=== PATIENT | male | born 1980 | race Caucasian/White ===

== ENCOUNTER 2020-01-05 16:30 | Emergency (ER) | payer BC, SELFPAY ==
[2020-01-05 16:38] VITALS: BP 159/89; PULSE 67; RESP 18; TEMP 36.9; O2SAT 97
--- NOTE | 2020-01-05 17:00 | ED.GENADULT ---
HPI - General Adult General Chief complaint: Upper Respiratory Infection Stated complaint: Fever Time Seen by Provider: 01/05/20 17:02 Source: patient and RN notes reviewed Mode of arrival: ambulatory Limitations: no limitations History of Present Illness HPI narrative: This is a 39 years old male presented office for evaluation of fever at nighttime for 10-day. Denies any other associated symptoms such as stuffy nose, ear pain, cough, abdominal pain. Report chronic nauseous due to also. He reported diarrhea today. Denies bloody stool. Denies sick contact. Denies new medication or diet. Related Data Home Medications Medication Instructions Recorded Confirmed Nadolol PO DAILY 01/05/20 pantoprazole [Protonix] 40 mg PO QAM 01/05/20 01/05/20 sertraline [Zoloft] 100 mg PO DAILY 01/05/20 01/05/20 warfarin [Coumadin] 2 mg PO DAILY 01/05/20 01/05/20 warfarin [Coumadin] 10 mg PO DAILY 01/05/20 01/05/20 Allergies Allergy/AdvReac Type Severity Reaction Status Date / Time No Known Allergies Allergy Verified 01/05/20 16:56 Review of Systems Review of Systems: Narrative: CONSTITUTIONAL: Reports fever ENT: Denies rhinorrhea, congestion, sore throat, otalgia. CARDIOVASCULAR: Denies chest pain RESPIRATORY: Denies dyspnea, wheezing, cough GASTROINTESTINAL: Denies abdominal pain, vomiting, diarrhea. +Nausea GENITOURINARY: Denies urinary symptoms or discharge SKIN: Denies rash MUSCULOSKELETAL: Denies acute back pain NEUROLOGIC: Denies lightheaded PMFSH Past Medical History Medical History History of prolonged Q-T interval on ECG Pulmonary embolism Ulcer Comments At time of signature, I agree with nursing past medical, surgical, social and family history. There is no relevant family history pertinent to the presenting complaint. Exam Narrative: Exam Narrative: GENERAL: This is a well-nourished, well-developed patient, in no apparent distress. Obese EYES: Sclera clear/white. Vision is grossly intact. EARS: External ears normal, auditory canals clear and without drainage, TMs normal without perforation. Hearing grossly intact. NOSE: External nose normal with no obvious nasal discharge, nares without redness, no rhinorrhea. THROAT: Mucous membranes moist, posterior pharynx clear. NECK: Neck supple, non-tender without lymphadenopathy, masses or thyromegaly. CARDIOVASCULAR: Regular rate and rhythm without murmurs, gallops, or rubs. RESPIRATORY: Clear to auscultation. Breath sounds equal bilaterally. No wheezes, rales, or rhonchi. GASTROINTESTINAL: Abdomen soft, non-tender, nondistended. Bowel sounds are active. No guarding. SKIN: warm, intact with no suspicious lesions or rash, good texture and turgor. NEURO: awake, alert, and oriented to person, place and time. There were no obvious focal neurologic abnormalities. Steady gait Norah Coma Scale Eye Opening: Spontaneous 4 Norah Coma Scale Motor: Obeys Commands 6 Fairchild Coma Scale Verbal: Oriented 5 Course Vital Signs Vital signs: Vital Signs Temperature 98.4 F 01/05/20 16:38 Pulse Rate 67 01/05/20 16:38 Respiratory Rate 18 01/05/20 16:38 Blood Pressure 159/89 H 01/05/20 16:38 Pulse Oximetry 97 01/05/20 16:38 Temperature 98.4 F 01/05/20 16:38 Pulse Rate 67 01/05/20 16:38 Respiratory Rate 18 01/05/20 16:38 Blood Pressure 159/89 H 01/05/20 16:38 Pulse Oximetry 97 01/05/20 16:38 Medical Decision Making MDM Narrative Medical decision making narrative: Discharge instructions reviewed with patient, as well as provided in writing per nursing staff. The instructions also include specific and strict return/GO TO THE ER as well as f/u information. All questions have been answered, and the patient deny any further questions with discharge and discharge plan. Differential Diagnosis Differential Diagnosis: influenza, viral syndrome, gastroenteritis, colitis, diverticulitis, div
== END 2020-01-05 17:15 | disposition home or self-care (01) ==
PROVIDERS: Emergency Provider Nurse Practitioner
DX: R19.7 Diarrhea, unspecified (principal); R03.0 Elevated blood-pressure reading, without diagnosis of hypertension; Z86.711 Personal history of pulmonary embolism
CPT/HCPCS: 87804; 99202; G0463

== ENCOUNTER 2020-10-10 15:06 | Emergency (ER) | payer BC, SELFPAY ==
[2020-10-10 15:25] VITALS: BP 148/86; PULSE 79; RESP 24; TEMP 36.9; O2SAT 99
--- NOTE | 2020-10-10 16:00 | ED.BACK ---
HPI - Back Pain/Injury General Chief Complaint: Back Pain/Injury Stated Complaint: severe back pains Source: patient Mode of arrival: ambulatory Limitations: no limitations History of Present Illness HPI Narrative: 40 y/o male. PMH includes: See Chart. Presents to ED today with acute complaints of low back pain, intermittently radiating down RT buttock and posterior thigh for past 24 hours. He reports pain to have began after lifting a few things . He denies acute injury, falls, or trauma. Pain is sharp in description, and worse with prolonged sitting or standing. He denies loss of lower extremity or BB control. No additional acute complaints relayed. Related Data Home Medications Medication Instructions Recorded Confirmed allopurinol 300 mg PO BID 10/10/20 10/10/20 atorvastatin 10 mg PO DAILY 10/10/20 10/10/20 cyclobenzaprine 10 mg PO TID PRN 10/10/20 10/10/20 lisinopril 10 mg PO DAILY 10/10/20 10/10/20 pantoprazole 40 mg PO QAM 10/10/20 10/10/20 sertraline 100 mg PO DAILY 10/10/20 10/10/20 warfarin 5 mg PO DAILY 10/10/20 10/10/20 Allergies Allergy/AdvReac Type Severity Reaction Status Date / Time No Known Allergies Allergy Verified 10/10/20 16:00 Review of Systems Review of Systems: Narrative: CONSTITUTIONAL: Denies fever, chills, sweats. EYES: Denies visual changes, redness, discharge. ENT: Denies rhinorrhea, congestion, sore throat, otalgia. CARDIOVASCULAR: Denies chest pain, palpitations, edema. RESPIRATORY: Denies dyspnea, wheezing, cough GASTROINTESTINAL: Denies abdominal pain, nausea, vomiting, diarrhea. GENITOURINARY: Denies dysuria, hematuria, abnormal discharge SKIN: Denies rash or itching. MUSCULOSKELETAL: Positive back pain. NEUROLOGIC: Denies numbness, or focal weakness. PSYCHIATRIC: Denies anxiety or depression. FORMERLY [facility], 1928–1983 Past Medical History Medical History (Updated 10/10/20 @ 16:12 by FABIANO Velazquez) History of prolonged Q-T interval on ECG Pulmonary embolism Ulcer Exam Narrative: Exam Narrative: GENERAL: Obese patient, in no apparent distress. HEAD: normocephalic, atraumatic. EYES: PERRL. Sclera clear/white. Vision is grossly intact. EARS: External ears normal, auditory canals clear and without drainage, TMs normal without perforation. Hearing grossly intact. NOSE: External nose normal with no obvious nasal discharge, nares without redness, no rhinorrhea. THROAT: Mucous membranes moist, posterior pharynx clear. NECK: Neck supple, non-tender without lymphadenopathy, masses or thyromegaly. CARDIOVASCULAR: Regular rate and rhythm without murmurs, gallops, or rubs. Pulses intact. RESPIRATORY: Clear to auscultation. Breath sounds equal bilaterally. No wheezes, rales, or rhonchi. GASTROINTESTINAL: Abdomen soft, non-tender, nondistended. Bowel sounds are active. No hepato-splenomegaly, or palpable masses. No guarding. SKIN: warm, intact with no suspicious lesions or rash, good texture and turgor. EXTREMITIES/Musculoskeletal: Normal range of motion. No edema. Positive muscle spasm lumbar. There is no midline spinal tenderness or deformity appreciated. SLR test positive RT at 45 degree. BACK: Nontender without deformity or crepitance. No flank tenderness. NEURO: Alert and oriented x4, GCS 15. Cranial nerves II through XII grossly intact. No focal neurological deficits. Steady gait. No saddle paraesthesia. Course Course Emergency Course: OP POC, AVS, & Medication instructions reviewed. Client is advised to have PCP F/U next 1 week. Consider additional OP imaging with persistence. Proceed to ER with sudden severe pain, weakness, loss of extremity or bowel/bladder control, or worsening. He voices understanding and agrees. Vital Signs Vital signs: Vital Signs Temperature 36.9 C 10/10/20 15:25 Pulse Rate 79 10/10/20 15:25 Respiratory Rate 24 H 10/10/20 15:25 Blood Pressure 148/86 H 10/10/20 15:25 Pulse Oximetry 99 10/10/20 15:25 Temperature 36.9 C 10/10/20 15:25 P
== END 2020-10-10 16:18 | disposition home or self-care (01) ==
PROVIDERS: Emergency Provider Nurse Practitioner Adult Health
DX: S39.012A Strain of muscle, fascia and tendon of lower back, initial encounter (principal); X50.0XXA Overexertion from strenuous movement or load, initial encounter; M54.41 Lumbago with sciatica, right side; Z86.711 Personal history of pulmonary embolism
CPT/HCPCS: 99213; G0463

== ENCOUNTER 2020-12-17 01:25 | Outpatient (CLI) | payer BC, SELFPAY ==
[2020-12-17 18:46] LABS: SARS-CoV-2 RNA PCR Negative
== END 2020-12-17 01:26 | disposition home or self-care (01) ==
LOC: ANHCOVIDDT 01:25
PROVIDERS: Visit Provider Internal Medicine Gastroenterology
DX: Z01.812 Encounter for preprocedural laboratory examination (principal); Z20.822 Contact with and (suspected) exposure to COVID-19
CPT/HCPCS: C9803; U0003; U0005

== ENCOUNTER 2020-12-20 01:59 | Day surgery (SDC) | payer BC, SELFPAY ==
[2020-12-13 08:33] VITALS: BMI 52.3
[2020-12-20 10:26] VITALS: BP 147/95; PULSE 96; RESP 78; TEMP 36.6; O2SAT 96
[2020-12-20] MEDS: LACTATED RINGERS 1,000 ML 150 ML IV CONT (10:35)
--- NOTE | 2020-12-20 10:47 | P.PNAN_ITS ---
Anes - Initial Pre Proc Eval Procedure: Operation Date: 12/20/20 11:45 Proposed Procedures p Colonoscopy - Bob Steele MD s [facility] Hemorrhoid Treatment - Bob Steele MD Date/Time: 12/20/20 10:47 Surgeon: Bob Steele MD Pre Op Diagnosis: Hemorrhoids, Rectal Bleeding Patient Data Age: 40 Gender: M Height: 6 ft Weight: 168 kg Last Vital Signs Temp 97.9 F 12/20/20 10:26 Pulse 96 12/20/20 10:26 Resp 78 H 12/20/20 10:26 BP 147/95 H 12/20/20 10:26 Pulse Ox 96 12/20/20 10:26 Allergies Allergy/AdvReac Type Severity Reaction Status Date / Time No Known Allergies Allergy Verified 12/20/20 10:24 Home Medications Medication Instructions Recorded Confirmed Type atorvastatin 10 mg PO DAILY 10/10/20 12/13/20 History hydrocodone-acetaminophen 1 tablet PO Q12H PRN #8 tablet 10/10/20 12/13/20 Rx lisinopril 10 mg PO DAILY 10/10/20 12/13/20 History pantoprazole 40 mg PO QAM 10/10/20 12/13/20 History sertraline 100 mg PO DAILY 10/10/20 12/13/20 History warfarin 12 mg PO DAILY 10/10/20 12/13/20 History Patient hx anesthesia problems: none Family hx anesthesia problems: none PMFSH Past Medical History Medical History (Updated 11/30/20 @ 13:33 by Bob Steele MD) Erosive gastritis History of prolonged Q-T interval on ECG Obesity, morbid, BMI 40.0-49.9 Pulmonary embolism Rectal bleeding Ulcer Social History Social History (Updated 11/30/20 @ 13:14 by Ashely Pulido CMA) Smoking packs per day: 1.5 Smoking cigarettes per day: 30.0 Years smoked: 20 Smoking pack-years: 30.00 Smoking status: Former smoker Tobacco type: cigarettes Alcohol intake: never Substance use: never Substance use type: does not use Living arrangements: with family Gender identity (if verbalized by the patient): Male Spiritual care concerns: No Anes - Eval Final PreProcedure Day of Procedure 12/20/20 10:47 Patient weight: super morbidly obese Heart: regular rate and rhythm Lungs: clear to auscultation Airway: Mallampati scale class III Neurological: alert and oriented Last oral intake: >/= 8 hours ASA classification: IV Emergent: no Anesthetic plan: proceed Anesthesia type and monitoring: general GIVS and standard monitoring Informed Consent: The patient's anesthetic plan and its attendant risks and benefits were discussed with the patient/family/POA. Questions were solicited and answers provided to the satisfaction of the patient/family/POA.
--- NOTE | 2020-12-20 11:00 | PM.HPGS ---
History of Present Illness History of Present Illness Consent: Risks, benefits, and alternatives have been discussed and questions answered. Patient agrees to proceed with procedure. Chief complaint: Hemorrhoids, Rectal Bleeding Narrative: Vikas Willingham is a 40 year old male with hematochezia and symptomatic hemorrhoids Review of Systems Constitutional: Constitutional: Denies headache(s) and Denies weakness Eyes: Eyes: Denies blurry vision ENT: Reports Normal hearing present, Denies headache(s) and Denies neck pain Cardiovascular: Cardiovascular: Denies chest pain and Denies dyspnea Respiratory: Respiratory: Denies dyspnea Gastrointestinal: Gastrointestinal: Reports no additional gastrointestinal complaints Genitourinary: Genitourinary: Denies dysuria Musculoskeletal: Musculoskeletal: Denies neck pain Integumentary/Breasts: Skin/Breast: Denies dry skin Neurologic: Reports Normal hearing present, Denies headache(s) and Denies weakness Psychiatric: Psychiatric: Denies anxiety Endocrine: Endocrine: Denies change in body appearance Hematologic/Lymphatic: Hematologic/Lymphatic: Denies easy bleeding Allergic/Immunologic: Allergic/Immunologic: Denies urticaria PMFSH Past Medical History Medical History (Updated 01/23/21 @ 11:53 by Bob Steele MD) Erosive gastritis Hemorrhoid History of prolonged Q-T interval on ECG Obesity, morbid, BMI 40.0-49.9 Pulmonary embolism Rectal bleeding Ulcer Social History Social History (Updated 11/30/20 @ 13:14 by Ashley Pulido CMA) Smoking packs per day: 1 Smoking cigarettes per day: 20.0 Years smoked: 20 Smoking pack-years: 20.00 Smoking status: Former smoker Tobacco type: cigarettes Alcohol intake: current Alcohol use details: A COUPLE DRINKS PER MONTH Substance use: never Substance use type: does not use Living arrangements: with family Gender identity (if verbalized by the patient): Male Spiritual care concerns: No Meds Home Medications and Allergies Home Medications Medication Instructions Recorded Confirmed Type atorvastatin 10 mg PO DAILY 10/10/20 01/09/21 History lisinopril 10 mg PO DAILY 10/10/20 01/09/21 History pantoprazole 40 mg PO QAM 10/10/20 01/09/21 History sertraline 100 mg PO DAILY 10/10/20 01/09/21 History warfarin 12 mg PO DAILY 10/10/20 01/13/21 History Allergies Allergy/AdvReac Type Severity Reaction Status Date / Time No Known Allergies Allergy Verified 01/13/21 10:56 Exam Const: General: comfortable and no acute distress HENMT: General nose exam: Normal nares present Eyes: General: appearance normal, both eyes and all related structures Neck: Neck: no JVD Resp: Auscultation: clear to auscultation bilaterally Cardio: Rate: regular rate Rhythm: regular rhythm GI: Inspection: non-distended GI Palp: Yes Soft to palpation Skin: General skin exam: normal color Neuro: General: gait normal Speech: normal speech Extrem: General: normal to inspection Psych: Mental Status: mental status grossly normal Assessment and Plan Assessment and plan (1) Hemorrhoid: Code(s): K64.9 - Unspecified hemorrhoids Status: Acute Assessment and Plan: irc (2) Rectal bleeding: Code(s): K62.5 - Hemorrhage of anus and rectum Status: Acute Assessment and Plan: colonoscopy
--- NOTE | 2020-12-20 11:53 | SUR.OPER ---
COLONOSCOPY COMPLETED AT 1152, IRC STARTED AT 1153 AND COMPLETED AT 1154
[2020-12-20 11:57] VITALS: BP 111/57; PULSE 80; RESP 23; O2SAT 97
[2020-12-20 12:07] VITALS: BP 105/59; PULSE 78; RESP 23; O2SAT 97
--- NOTE | 2020-12-20 13:49 | PM.PROC ---
Procedure Note - Detailed Date of procedure: 12/20/20 Pre-op diagnosis: Hemorrhoids, Rectal Bleeding Surgeon: Bob Steele MD PROCEDURE: Infrared coagulation FINDINGS: internal hemorrhoids grade II Patient signed consent. After we completed colonoscopy (see full report in other note), I introduced anoscope, found grade II non-bleeding internal hemorrhoids at 3 o'clock, then IRC probe was inserted and used for 1.5 seconds each time x4, patient tolerated procedure and will go to recovery area. Recommendations: use stool softners and avoid straining patient to call again if similar symptoms, may need another IRC hold coumadin for 5 days
== END 2020-12-20 12:38 | disposition home or self-care (01) ==
PROVIDERS: Visit Provider Internal Medicine Gastroenterology
PROC: 0DJD8ZZ Inspection of Lower Intestinal Tract, Via Natural or Artificial Opening Endoscopic (ICD-10-PCS; CPT 45378; principal; 2020-12-20 11:45)
PROC: (CPT 46930; 2020-12-20 11:45)
DX: K62.89 Other specified diseases of anus and rectum (principal); K92.1 Melena; D12.4 Benign neoplasm of descending colon; K64.1 Second degree hemorrhoids; Z86.711 Personal history of pulmonary embolism; Z79.01 Long term (current) use of anticoagulants; E66.01 Morbid (severe) obesity due to excess calories; Z68.43 Body mass index [BMI] 50.0-59.9, adult; Z87.891 Personal history of nicotine dependence
CPT/HCPCS: 45385; 46930; 88305; J2704; J7120

== ENCOUNTER 2021-01-13 01:23 | Day surgery (SDC) | payer BC, SELFPAY ==
[2021-01-09 08:39] VITALS: BMI 52.3
[2021-01-13 10:50] VITALS: BP 154/84; PULSE 68; RESP 16; TEMP 36.6; O2SAT 98
[2021-01-13 11:20] VITALS: BP 111/53; PULSE 57; RESP 16; O2SAT 99
[2021-01-13 11:28] VITALS: BP 144/72; PULSE 63; RESP 16; O2SAT 100
--- NOTE | 2021-01-13 11:28 | WPDHPUPDATE1 ---
History and Physical Update Update Date/Time: 01/13/21 11:28 History and Physical has been reviewed, including an updated exam of the patient. There are NO changes in the patient's condition. Risks, benefits, and alternatives have been discussed and questions answered. Patient agrees to proceed with procedure.
--- NOTE | 2021-01-13 11:29 | PM.PROC ---
Procedure Note - Detailed Date of procedure: 01/13/21 Pre-op diagnosis: Hemorrhoids IRC few weeks ago, still symptomatic (also tried lidocaine/nifedipine anal cream but did not help) Post-op diagnosis: same Procedure performed: PROCEDURE: Infrared coagulation FINDINGS: internal hemorrhoids grade II Patient signed consent. No anal fissure, no bleeding. I introduced anoscope, found grade II non-bleeding internal hemorrhoids at 3-6 o'clock, then IRC probe was inserted and used for 1.5 seconds each time x5, patient tolerated procedure and will go to recovery area. Recommendations: use stool softners and avoid straining hold coumadin for 3 days anusol hydrocortisone suppository bid for 10 days (gave samples) Anesthesia: none Surgeon: Bob Steele MD Complications: No immediate complications
--- NOTE | 2021-01-23 12:02 | HP_ITS ---
This report was moved to the correct visit, [id number], on January 31, 2021. Original report was signed by Dr. Bob Steele on January 23, 2021 at 12:02. History of Present Illness History of Present Illness Consent: Risks, benefits, and alternatives have been discussed and questions answered. Patient agrees to proceed with procedure. Chief complaint: Hemorrhoids, Rectal Bleeding Narrative: Vikas Willingham is a 40 year old male with hematochezia and symptomatic hemorrhoids Review of Systems Constitutional: Constitutional: Denies headache(s) and Denies weakness Eyes: Eyes: Denies blurry vision ENT: Reports Normal hearing present, Denies headache(s) and Denies neck pain Cardiovascular: Cardiovascular: Denies chest pain and Denies dyspnea Respiratory: Respiratory: Denies dyspnea Gastrointestinal: Gastrointestinal: Reports no additional gastrointestinal complaints Genitourinary: Genitourinary: Denies dysuria Musculoskeletal: Musculoskeletal: Denies neck pain Integumentary/Breasts: Skin/Breast: Denies dry skin Neurologic: Reports Normal hearing present, Denies headache(s) and Denies weakness Psychiatric: Psychiatric: Denies anxiety Endocrine: Endocrine: Denies change in body appearance Hematologic/Lymphatic: Hematologic/Lymphatic: Denies easy bleeding Allergic/Immunologic: Allergic/Immunologic: Denies urticaria PMFSH Past Medical History Medical History (Updated 01/23/21 @ 11:53 by Bob Steele MD) Erosive gastritis Hemorrhoid History of prolonged Q-T interval on ECG Obesity, morbid, BMI 40.0-49.9 Pulmonary embolism Rectal bleeding Ulcer Social History Social History (Updated 11/30/20 @ 13:14 by Ashley Pulido CMA) Smoking packs per day: 1 Smoking cigarettes per day: 20.0 Years smoked: 20 Smoking pack-years: 20.00 Smoking status: Former smoker Tobacco type: cigarettes Alcohol intake: current Alcohol use details: A COUPLE DRINKS PER MONTH Substance use: never Substance use type: does not use Living arrangements: with family Gender identity (if verbalized by the patient): Male Spiritual care concerns: No Meds Home Medications and Allergies Home Medications Medication Instructions Recorded Confirmed Type atorvastatin 10 mg PO DAILY 10/10/20 01/09/21 History lisinopril 10 mg PO DAILY 10/10/20 01/09/21 History pantoprazole 40 mg PO QAM 10/10/20 01/09/21 History sertraline 100 mg PO DAILY 10/10/20 01/09/21 History warfarin 12 mg PO DAILY 10/10/20 01/13/21 History Allergies Allergy/AdvReac Type Severity Reaction Status Date / Time No Known Allergies Allergy Verified 01/13/21 10:56 Exam Const: General: comfortable and no acute distress HENMT: General nose exam: Normal nares present Eyes: General: appearance normal, both eyes and all related structures Neck: Neck: no JVD Resp: Auscultation: clear to auscultation bilaterally Cardio: Rate: regular rate Rhythm: regular rhythm GI: Inspection: non-distended GI Palp: Yes Soft to palpation Skin: General skin exam: normal color Neuro: General: gait normal Speech: normal speech Extrem: General: normal to inspection Psych: Mental Status: mental status grossly normal Assessment and Plan Assessment and plan (1) Hemorrhoid: Code(s): K64.9 - Unspecified hemorrhoids Status: Acute Assessment and Plan: irc (2) Rectal bleeding: Code(s): K62.5 - Hemorrhage of anus and rectum
== END 2021-01-13 11:30 | disposition home or self-care (01) ==
PROVIDERS: PCP Family Medicine; Visit Provider Internal Medicine Gastroenterology
PROC: (CPT 46930; principal; 2021-01-13 11:45)
DX: K64.1 Second degree hemorrhoids (principal); Z87.891 Personal history of nicotine dependence; E66.01 Morbid (severe) obesity due to excess calories; Z68.43 Body mass index [BMI] 50.0-59.9, adult; Z86.711 Personal history of pulmonary embolism; Z79.01 Long term (current) use of anticoagulants
CPT/HCPCS: 46930

== ENCOUNTER 2021-04-03 09:05 | Emergency (ER) | payer BC, SELFPAY ==
[2021-04-03 09:08] VITALS: BP 143/74; PULSE 54; RESP 20; TEMP 36.4; O2SAT 98
--- NOTE | 2021-04-03 09:38 | ED.GENADULT ---
HPI - General Adult General Chief complaint: Ear Stated complaint: Echoing in ear Time Seen by Provider: 04/03/21 09:38 Source: patient and RN notes reviewed Mode of arrival: ambulatory Limitations: no limitations History of Present Illness HPI narrative: 40-year-old male complains of left otalgia, pressure, and echoing for the past 3 hours. Vikas albarado awaken this morning with LT otalgia and came directly to the [facility]. No treatment. No facial swelling. No rhinorrhea and nasal congestion. No high fevers, sore throat, drooling, neck or throat swelling. Denies dizziness, nausea, vomiting, and abdominal pain. Tolerating liquids well. Remains active. The patient reports he have not been diagnosed with COVID-19. The patient reports he is not waiting for the results of a COVID-19 lab test. The patient reports he do not have chills, weakness, or fatigue. The patient reports he do not have a new or worsening cough or shortness of breath. Denies chest pain. The patient reports he do not have any loss of taste or smell, and diarrhea. Denies recent traveling. Denies concerns for COVID-19 or exposures been home with limited outdoor exposure except for essential household needs and return home. At this time, patient is not suspected of having COVID-19. Some parts of this dictation were generated by voice recognition software and may contain typographical and/or grammatical inaccuracies. Related Data Home Medications Medication Instructions Recorded Confirmed lisinopril 10 mg PO DAILY 10/10/20 04/03/21 sertraline 100 mg PO DAILY 10/10/20 04/03/21 warfarin 12 mg PO DAILY 10/10/20 04/03/21 atorvastatin 20 mg PO DAILY 04/03/21 04/03/21 Allergies Allergy/AdvReac Type Severity Reaction Status Date / Time No Known Allergies Allergy Verified 04/03/21 09:35 Review of Systems Review of Systems: Narrative: CONSTITUTIONAL: Denies fever, chills, sweats. EYES: Denies visual changes, redness, discharge. ENT: Complains of LT otalgia, pressure, and echoing. Denies sore throat, congestion, rhinorrhea, decrease hearing. CARDIOVASCULAR: Denies chest pain, palpitations, edema. RESPIRATORY: Denies dyspnea, wheezing, cough. GASTROINTESTINAL: Denies abdominal pain, nausea, vomiting, diarrhea. SKIN: Denies rash or itching. MUSCULOSKELETAL: Denies acute back pain, joint pain, or myalgia. NEUROLOGIC: Denies numbness or focal weakness. PSYCHIATRIC: Denies anxiety or depression. All systems reviewed & are unremarkable except as noted in HPI and below. [facility] Past Medical History Medical History (Updated 04/04/21 @ 00:01 by Emeli Mc) Erosive gastritis Hemorrhoid History of prolonged Q-T interval on ECG Obesity, morbid, BMI 40.0-49.9 Pulmonary embolism Rectal bleeding Right shoulder pain Ulcer Surgical History Surgical History (Updated 04/03/21 @ 09:49 by HAYDEE Garcia) History of shoulder surgery Family History Family History (Updated 04/03/21 @ 09:51 by HAYDEE Garcia) Father Unknown family medical history Mother Unknown family medical history Social History Social History Smoking packs per day: 1 Smoking cigarettes per day: 20.0 Years smoked: 20 Smoking pack-years: 20.00 Smoking status: Former smoker Tobacco type: cigarettes Alcohol intake: current Substance use: never Substance use type: does not use Gender identity (if verbalized by the patient): Male Spiritual care concerns: No Comments At time of signature, agree with nurse past medical, surgical, social, and family history. There is no relevant family history pertinent to the presenting complaint. Exam Narrative: Exam Narrative: GENERAL: This is a well-nourished, well-developed patient, in no apparent distress. Talks in full sentences and ambulates with steady gait without dyspnea. HEAD: Normocephalic, atraumatic. EYES: PERRL. Sclera nicolás
== END 2021-04-03 10:00 | disposition home or self-care (01) ==
PROVIDERS: Emergency Provider Nurse Practitioner Family
DX: H66.93 Otitis media, unspecified, bilateral (principal); Z87.891 Personal history of nicotine dependence; Z86.711 Personal history of pulmonary embolism; E66.01 Morbid (severe) obesity due to excess calories; Z68.43 Body mass index [BMI] 50.0-59.9, adult
CPT/HCPCS: 99213; G0463